=== PATIENT | male | born 1950 | race Caucasian/White ===

== ENCOUNTER 2018-10-09 10:13 | Emergency (ER) | payer MEDICARE, OTHER ==
[~2018-10-09] VITALS: Ht 175.3 cm; Wt 89.8 kg
--- NOTE | 2018-10-09 11:11 | PHYS DOC ---
Past History Past Medical History: Arthritis, Diabetes, Hypertension Past Surgical History: Knee Replacement Alcohol Use: Occasionally Additional Alcohol Information: STATES HE DRINKS A GLASS OF WINE EVERY EVENING Drug Use: None Adult General Chief Complaint Chief Complaint: FINGER INJURY HPI HPI 68-year-old male presents with finger pain. The patient was cutting [place] bread last night when he sliced off a piece of skin of his left index finger. The skin was completely removed. It was bleeding but patient thought he could get it stopped. He wrapped it up at home and was able to go to bed last night. He presents today because it still seems to be bleeding on occasion. Denies any other injuries or complaints. Review of Systems Review of Systems Constitutional: Denies fever or chills [] Eyes: Denies change in visual acuity, redness, or eye pain [] HENT: Denies nasal congestion or sore throat [] Respiratory: Denies cough or shortness of breath [] Cardiovascular: No additional information not addressed in HPI [] GI: Denies abdominal pain, nausea, vomiting, bloody stools or diarrhea [] : Denies dysuria or hematuria [] Musculoskeletal: Denies back pain or joint pain [] Integument: Left index finger avulsion[] Neurologic: Denies headache, focal weakness or sensory changes [] Endocrine: Denies polyuria or polydipsia [] All other systems were reviewed and found to be within normal limits, except as documented in this note. Current Medications Current Medications Current Medications Medications (Trade) Dose Ordered Sig/Yovani Start Time Stop Time Status Last Admin Dose Admin Silver Nitrate/ Potassium Nitrate 1 each 1X ONCE 10/09/18 11:15 10/09/18 11:16 UNV Physical Exam Physical Exam Constitutional: Well developed, well nourished, no acute distress, non-toxic appearance. [] HENT: Normocephalic, atraumatic, bilateral external ears normal, oropharynx moist, no oral exudates, nose normal. [] Eyes: PERRLA, EOMI, conjunctiva normal, no discharge. [] Neck: Normal range of motion, no tenderness, supple, no stridor. [] Cardiovascular:Heart rate regular rhythm, no murmur [] Lungs & Thorax: Bilateral breath sounds clear to auscultation [] Abdomen: Bowel sounds normal, soft, no tenderness, no masses, no pulsatile masses. [] Skin: One centimeter oval skin avulsion of the left index finger, mild bleeding. [] Back: No tenderness, no CVA tenderness. [] Extremities: No tenderness, no cyanosis, no clubbing, ROM intact, no edema. [] Neurologic: Alert and oriented X 3, normal motor function, normal sensory function, no focal deficits noted. [] Psychologic: Affect normal, judgement normal, mood normal. [] Current Patient Data Vital Signs Vital Signs Date Time Temp Pulse Resp B/P (MAP) Pulse Ox O2 Delivery O2 Flow Rate FiO2 10/09/18 10:25 97.6 60 18 99 Room Air EKG EKG [] Radiology/Procedures Radiology/Procedures [] Course & Med Decision Making Course & Med Decision Making Pertinent Labs and Imaging studies reviewed. (See chart for details) Patient's finger was still having some blood seepage. I cauterized with silver nitrate. The patient tolerated the procedure well. A clean dressing was then applied. The patient was given a tDap in the ED. He is stable for discharge at this time. [] Dragon Disclaimer Dragon Disclaimer This electronic medical record was generated, in whole or in part, using a voice recognition dictation system. Departure Departure: Impression: Primary Impression: Laceration of left index finger without damage to nail Disposition: HOME, SELF-CARE Condition: STABLE Referrals: VICKY LAMB MD (PCP) Patient Instructions: Laceration Care, Adult, [id number] Problem Qualifiers Primary Impression: Laceration of left index finger without damage to nail Encounter type: initial encounter Foreign body presence: without foreign body Qualified Codes: S61.211A - Laceration without foreign body of left index finger without damage to nail, initial encounter SANDRA CHU DO Oct 09, 2018 11:11
[2018-10-09 11:45] VITALS: BP 140/83
[2018-10-09] MEDS ORDERED: SILVER NITRATE STICK TP ONE (12:10)
[2018-10-09] MEDS ORDERED: DIPHTH,PERTUSS(ACELL),TET TOX 0.5 ML DISP.SYRIN. VAX IM ONE (12:15)
== END 2018-10-09 11:59 | disposition home or self-care (01) ==
LOC: ER 10:13
DX: S61.211A Laceration without foreign body of left index finger without damage to nail, initial encounter (principal); M19.90 Unspecified osteoarthritis, unspecified site; E11.9 Type 2 diabetes mellitus without complications; I10 Essential (primary) hypertension; W26.0XXA Contact with knife, initial encounter; Y93.89 Activity, other specified; Y92.89 Other specified places as the place of occurrence of the external cause; Y99.8 Other external cause status
CPT/HCPCS: 90471; 90715; 99283-25

== ENCOUNTER 2021-02-26 05:36 | Observation (INO) | payer MEDICARE, OTHER ==
[~2021-02-26] VITALS: Ht 175.3 cm; Wt 93.6 kg
[2021-02-26] VITALS (16 sets, daily range): BP systolic 110–143; BP diastolic 66–92
--- NOTE | 2021-02-26 05:47 | PHYS DOC ---
Past History Past Medical History: Arthritis, Diabetes, Hypertension (TWILA SHEFFIELD MD) Past Surgical History: Knee Replacement (TWILA SHEFFIELD MD) Alcohol Use: Occasionally Drug Use: None (TWILA SHEFFIELD MD) General Adult EDM: Chief Complaint: CHEST PAIN HPI: HPI: ".. I woke up with what I though was reflux or gastric symptoms.. but then had this irregular fast heart rate.. " Patient is a 70 year old male who presents with epigastric/chest pain that awakened him from sleep. Paramedics responded to his home and gave him 2 doses of adenosine 6 and 12 with no change in his tachycardia rhythm. On arrival patient having episodes of normal sinus and runs of A. fib. Patient has past medical history of hypertension which he has been compliant with his medications. Patient denies any recent travel. No severe ill contacts. No history immunosuppression. Normally follows at [place]. Patient has completed Covid - Moderna vaccinations x 2. (TWILA SHEFFIELD MD) Review of Systems: Review of Systems: Constitutional: Denies fever or chills Eyes: Denies change in visual acuity HENT: Denies nasal congestion or sore throat Respiratory: Denies cough or shortness of breath Cardiovascular: Complains of chest pain GI: Complains of epigastric abdominal pain, nausea,. Denies vomiting, bloody stools or diarrhea : Denies dysuria Musculoskeletal: Denies back pain or joint pain Integument: Denies rash Neurologic: Denies headache, focal weakness or sensory changes Endocrine: Denies polyuria or polydipsia Lymphatic: Denies swollen glands Psychiatric: Denies depression or anxiety (TWILA SHEFFIELD MD) Family History: Family History: Noncontributory to presentation. (TWILA SHEFFIELD MD) Current Medications: Current Meds: See nursing for home meds (TWILA SHEFFIELD MD) Allergies: Allergies: Allergies Coded Allergies Type Severity Reaction Last Updated Verified codeine Allergy Unknown 02/26/21 Yes (TWILA SHEFFIELD MD) Physical Exam: PE: Constitutional: moderate acute distress, non-toxic appearance. [] HENT: Normocephalic, atraumatic, bilateral external ears normal, oropharynx moist, no oral exudates, nose normal. [] Eyes: PERRLA, EOMI, conjunctiva normal, no discharge. Glasses Neck: Normal range of motion, no tenderness, supple, no stridor. [] Cardiovascular: Irregular heart rate irregular rhythm, no murmur []. The monitor shows A. fib Lungs & Thorax: Bilateral breath sounds equal apex on auscultation [] Abdomen: Bowel sounds normal, soft, no tenderness, no masses, no pulsatile masses. [] Skin: Warm, dry, no erythema, no rash. [] Back: No tenderness, no CVA tenderness. [] Extremities: No tenderness, no cyanosis, no clubbing, ROM intact, no edema. Left knee scar. No cording Neurologic: Alert and oriented X 3, normal motor function, normal sensory function, no focal deficits noted. [] Psychologic: Affect anxious, judgement normal, mood normal. [] (TWILA SHEFFIELD MD) Current Patient Data: Labs: Laboratory Tests Test 02/26/21 05:41 Glucose (Fingerstick) 159 mg/dL (70-99) H (TWILA SHEFFIELD MD) EKG: EKG: My interpretation EKG shows a ventricular rate of 159. Irregular rhythm and irregular rate. Overall morphology consistent with A. fib. Does have septal s train pattern changes. Abnormal EKG. Time of this EKG was 538 hours [] (TWILA SHEFFIELD MD) EKG: A. fib and RVR 159 bpm, no axis deviation, QTC 442, no obvious ST elevations 0720 sinus rhythm 83 bpm, no axis deviation, normal intervals, no T wave inversions, no ST elevations or ST depressions, no active chest pain ([facility]) Radiology/Procedures: Radiology/Procedures: [] (TWILA SHEFFIELD MD) Radiology/Procedures: IMAGING REPORT Signed PATIENT: YESIKA HASKINS ACCOUNT: [id number] : 1950 LOCATION: ER AGE: 70 SEX: M EXAM STATUS: PRE ER ORD. PHYSICIAN: TWILA SHEFFIELD MD REASON: cp PROCEDURE: PORTABLE CHEST 1V XR CHEST 1V INDICATION: cp COMPARISON STUDY: None. FINDINGS: Lungs: Normal lung volume. No focal airspace disease. Normal pulmonary vasculature. Pleura: No pleural effusion or pneumothorax. Heart and Mediastinum: Normal cardiac mediastinal silhouette. Tortuosity of the thoracic aorta. IMPRESSION: No focal airspace disease. Electronically signed by: Chad Duron MD (02/26/2021 6:17 AM) [facility] DICTATED AND SIGNED BY: CHAD DURON MD DATE: 02/26/21 0615 CC: TWILA SHEFFIELD MD; VICKY LAMB MD ~MTH0 0 ([facility]) Heart Score: C/O Chest Pain: Yes HEART Score for Chest Pain: HEART Score for Chest Pain Response (Comments) Value History Moderately Suspicious 1 ECG Nonspecific Repolarizatio 1 Age > 65 2 Risk Factors 1 or 2 Risk Factors 1 Troponin < Normal Limit 0 Total 5 Risk Factors: Risk Factors: DM, Current or recent (<one month) smoker, HTN, HLP, family history of CAD, obesity. Risk Scores: Score 0 - 3: 2.5% MACE over next 6 weeks - Discharge Home Score 4 - 6: 20.3% MACE over next 6 weeks - Admit for Clinical Observation Score 7 - 10: 72.7% MACE over next 6 weeks - Early Invasive Strategies (TWILA SHEFFIELD MD) C/O Chest Pain: Yes HEART Score for Chest Pain: HEART Score for Chest Pain Response (Comments) Value History Moderately Suspicious 1 ECG Nonspecific Repolarizatio 1 Age > 65 2 Risk Factors >3 Risk Factors or Hx CAD 2 Troponin < Normal Limit 0 Total 6 (SHANNON WOLF DO) Course & Med Decision Making: Course & Med Decision Making Pertinent Labs and Imaging studies reviewed. (See chart for details) Pt. endorsed to Dr. Garcia at shift change. She will make disposition. Impression: 1. Chest Pain 2. Afib. 3. Accelerated HTN 4. DM =159 [] (TWILA SHEFFIELD MD) Course & Med Decision Making Concern for chest pain in a moderate risk patient in the setting of new onset atrial fibrillation. Chest pain resolved with nitro. Will admit to the ICU on Cardizem drip. Patient stable time of admission and agrees to this plan -this conversation was witnessed via on facetime, (patient consents to his/her/their knowledge and involvement in pts' medical care),. I have spoken with the patient and/or caregivers. I have explained the patient's condition, diagnosis and treatment plan based on the information available to me at this time. I have answered the patient's and/or caregivers questions and answered any concerns. The patient and/or caregivers have as good an understanding of the patient's diagnosis, condition and treatment plan as can be expected at this point. The patient has been stabilized within the capability of the emergency department. The patient will be transported for further care and management or will be moved to an observation or inpatient service. I have communicated with the staff or medical practitioner taking over this patient's care. Critical Care: Authorized and Performed by: Shannon Wolf DO Total critical care time: approximately 35 minutes Due to a high probability of clinically significant, life threatening deterioration, the patient required my highest level of preparedness to intervene emergently and I personally spent this critical care time directly and personally managing the patient. This critical care time included obtaining a history; examining the patient; pulse oximetry; ventilator management if necessary; ordering and review of studies; arranging urgent treatment with development of a management plan; evaluation of patient's response to treatment; frequent reassessment; discussion with patient/family; and, discussions with ot her providers. This critical care time was performed to assess and manage the high probability of imminent, life-threatening deterioration that could result in multi-organ failure. It was exclusive of separately billable procedures and treating other patients and teaching time. Please see MDM section and the rest of the note for further information on patient assessment and treatment. (SHANNON WOLF DO) Dragon Disclaimer: Dragon Disclaimer: This electronic medical record was generated, in whole or in part, using a voice recognition dictation system. (TWILA SHEFFIELD MD) Departure Departure: Impression: Primary Impression: Chest pain Additional Impression: New onset atrial fibrillation Disposition: ADMITTED INPATIENT Admitting Physician: William Walker (SHANNON WOLF DO) Condition: CRITICAL Referrals: VICKY LAMB MD (PCP) TWILA SHEFFIELD MD Feb 26, 2021 05:47 SHANNON WOLF DO Feb 26, 2021 06:28
[2021-02-26] MEDS ORDERED: IV NORMAL SALINE 100ML 100 ML ONE (05:59)
[2021-02-26] MEDS ORDERED: IV RINGERS SOLUTION,LACTATED 1,000 ML IV SCH (06:00)
[2021-02-26] MEDS ORDERED: ASPIRIN 325 MG TABLET PO ONE (06:00)
[2021-02-26] MEDS ORDERED: dilTIAZem 25 MG/5 ML VIAL IVP ONE (06:00)
[2021-02-26] MEDS ORDERED: ASPIRIN CHEWABLE 81 MG TABLET. PO ONE (06:00)
[2021-02-26] MEDS ORDERED: dilTIAZem VIAL 125 MG in IV NORMAL SALINE 100ML 100 ML IV PRN (06:00)
[2021-02-26] MEDS ORDERED: NITROGLYCERIN OINT 1 GM PACKET. TP ONE (06:00)
[2021-02-26] MEDS ORDERED: dilTIAZem VIAL 125 MG in IV NORMAL SALINE 100ML 100 ML IV ONE (06:00)
[2021-02-26] MEDS ORDERED: ENOXAPARIN ** NOTE DOSE ** SYRINGE SQ ONE (06:00)
[2021-02-26 06:01] LABS: BASO # 0.1 x10^3/uL (0.0-0.2); BASO % 1 % (0-3); EOS # 0.2 x10^3/uL (0.0-0.7); EOS % 2 % (0-3); HEMATOCRIT 41.3 % (39.0-53.0); HEMOGLOBIN 13.8 g/dL (13.0-17.5); LYMPH # 1.5 x10^3/uL (1.0-4.8); LYMPH % 14 % (24-48); MEAN CORPUSCULAR HEMOGLOBIN 29 pg (25-35); MEAN CORPUSCULAR HGB CONC 33 g/dL (31-37); MEAN CORPUSCULAR VOLUME 87 fL (79-100); MONO # 0.8 x10^3/uL (0.0-1.1); MONO % 8 % (0-9); NEUT # 7.8 x10^3uL (1.8-7.7); NEUT % 75 % (31-73); PLATELET COUNT 248 x10^3/uL (140-400); RED BLOOD COUNT 4.75 x10^6/uL (4.30-5.70); RED CELL DISTRIBUTION WIDTH 13.5 % (11.5-14.5); WHITE BLOOD COUNT 10.4 x10^3/uL (4.0-11.0)
[2021-02-26 06:07] LABS: CREATININE 1.4 mg/dL (0.7-1.3); GFR 50.1
[2021-02-26 06:20] LABS: ALBUMIN 3.6 g/dL (3.4-5.0); DIRECT BILIRUBIN 0.2 mg/dL (0.0-0.2); MAGNESIUM 1.9 mg/dL (1.8-2.4); TOTAL BILIRUBIN 0.7 mg/dL (0.2-1.0); TOTAL PROTEIN 6.5 g/dL (6.4-8.2)
--- NOTE | 2021-02-26 06:20 | RAD ---
XR CHEST 1V INDICATION: cp COMPARISON STUDY: None. FINDINGS: Lungs: Normal lung volume. No focal airspace disease. Normal pulmonary vasculature. Pleura: No pleural effusion or pneumothorax. Heart and Mediastinum: Normal cardiac mediastinal silhouette. Tortuosity of the thoracic aorta. IMPRESSION: No focal airspace disease. Electronically signed by: Walter Duron MD (02/26/2021 6:17 AM) [facility]ITAL[facility]
--- NOTE | 2021-02-26 07:12 | EKG ---
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
--- NOTE | 2021-02-26 07:27 | EKG ---
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
--- NOTE | 2021-02-26 08:40 | PDOC2 ---
CARDIAC CONSULT DATE OF CONSULT DOS: DATE: 02/26/21 TIME: 08:38 REASON FOR CONSULT Reason for Consult Chest pain REFERRING PHYSICIAN Referring Physician Dr. Perry SOURCE Source: Chart review, Patient HPI History of Present Illness This is a 70 yo male who presented secondary to chest pain, palpitations that wok him up from sleep. Patient reports indigestion feeling initially. Took tums and laid back down. Initially felt better. Woke up again and had more pressure in his central chest. Radiated down his left arm. Was not short of breath or diaphoretic. Got up to walk and felt a little dizzy. Began feeling heart beat irregularly. EMS was called. Patient was significantly tachycardiac with HR in the 170's upon their arrival. Initially thought to be in SVT. Adenosine 6mg followed by 12mg administered without improvement. Upon arrival to ED, was noted with AFIB and was given Cardizem bolus and initiated on Cardizem gtt. Converted back to SR. Patient feeling much better following rhythm conversion. Has had no further pain/pressure. No recent GALICIA or chest pain with exertion. No recent fevers or illness. No previous cardiac workup. PAST MEDICAL HISTORY Cardiovascular: HTN Musculoskeletal: Osteoarthritis PAST SURGICAL HISTORY Past Surgical History: Total hip replacement (left knee ), Other (lumbar fusion ) FAMILY HISTORY Family History: Heart Disease, Stroke SOCIAL HISTORY Smoke: No ALCOHOL: other (nightly wine ) Drugs: None Lives: with Family CURRENT MEDICATIONS Current Medications Current Medications Aspirin (Aspirin Chewable) 324 mg 1X ONCE PO Last administered on 02/26/21at 06:17; Start 02/26/21 at 06:00; Stop 02/26/21 at 06:01; Status DC Lactated Ringer's 1,000 ml @ 100 mls/hr Q10H IV Last administered on 02/26/21at 06:25; Start 02/26/21 at 06:00; Stop 02/26/21 at 15:59 Enoxaparin Sodium (Lovenox 100mg Syringe) 100 mg 1X ONCE SQ Last administered on 02/26/21at 06:18; Start 02/26/21 at 06:00; Stop 02/26/21 at 06:01; Status DC Aspirin (Vikki Aspirin) 325 mg 1X ONCE PO ; Start 02/26/21 at 06:00; Stop 02/26/21 at 06:01; Status UNV Diltiazem HCl 125 mg/Sodium Chloride 125 ml @ 5 mls/hr 1X ONCE IV Last administered on 02/26/21at 06:06; Start 02/26/21 at 06:00; Stop 02/27/21 at 06:59 Diltiazem HCl 125 mg/Sodium Chloride 125 ml @ 5 mls/hr CONT PRN IV SEE I/O RECORD; Start 02/26/21 at 06:00 Diltiazem HCl (Cardizem Iv Push) 5 mg 1X ONCE IVP Last administered on 02/26/21at 06:11; Start 02/26/21 at 06:00; Stop 02/26/21 at 06:01; Status DC Nitroglycerin (Nitro-Bid Oint) 1 inch 1X ONCE TP Last administered on 02/26/21at 06:20; Start 02/26/21 at 06:00; Stop 02/26/21 at 06:02; Status DC Sodium Chloride 100 ml @ As Directed STK-MED ONCE .ROUTE ; Start 02/26/21 at 05:59; Stop 02/26/21 at 05:59; Status DC Diltiazem HCl (Cardizem) 125 mg STK-MED ONCE IV ; Start 02/26/21 at 05:59; Stop 02/26/21 at 05:59; Status DC ALLERGIES Allergies: Coded Allergies: codeine (Verified Allergy, Unknown, 02/26/21) ROS Review of Systems 14 point ROS conducted with pertinent positives noted above in HPI PHYSICAL EXAM General: Alert, Oriented X3, Cooperative, No acute distress HEENT: Atraumatic Lungs: Clear to auscultation Heart: Regular rate Abdomen: Soft, No tenderness Extremities: No edema, Normal pulses Skin: No breakdown Neuro: Normal speech, Sensation intact Psych/Mental Status: Mental status NL, Mood NL MUSCULOSKELETAL: Osteoarthritic changes both hands VITALS Vital Signs Vital Signs Date Time Temp Pulse Resp B/P (MAP) Pulse Ox O2 Delivery O2 Flow Rate FiO2 02/26/21 07:53 82 17 144/82 (102) 96 Room Air 02/26/21 05:40 98.9 LABS LABS Laboratory Tests Test 02/26/21 05:41 02/26/21 05:43 Glucose (Fingerstick) 159 mg/dL (70-99) White Blood Count 10.4 x10^3/uL (4.0-11.0) Red Blood Count 4.75 x10^6/uL (4.30-5.70) Hemoglobin 13.8 g/dL (13.0-17.5) Hematocrit 41.3 % (39.0-53.0) Mean Corpuscular Volume 87 fL (79-100) Mean Corpuscular Hemoglobin 29 pg (25-35) Mean Corpuscular Hemoglobin Concent 33 g/dL (31-37) Red Cell Distribution Width 13.5 % (11.5-14.5) Platelet Count 248 x10^3/uL (140-400) Neutrophils (%) (Auto) 75 % (31-73) Lymphocytes (%) (Auto) 14 % (24-48) Monocytes (%) (Auto) 8 % (0-9) Eosinophils (%) (Auto) 2 % (0-3) Basophils (%) (Auto) 1 % (0-3) Neutrophils # (Auto) 7.8 x10^3uL (1.8-7.7) Lymphocytes # (Auto) 1.5 x10^3/uL (1.0-4.8) Monocytes # (Auto) 0.8 x10^3/uL (0.0-1.1) Eosinophils # (Auto) 0.2 x10^3/uL (0.0-0.7) Basophils # (Auto) 0.1 x10^3/uL (0.0-0.2) Prothrombin Time < 9.3 SEC (9.4-11.4) Prothromb Time International Ratio < 0.9 (0.9-1.1) Activated Partial Thromboplast Time 27 SEC (23-33) D-Dimer (Diamond) 0.44 mg/L (0.00-0.50) Sodium Level 142 mmol/L (136-145) Potassium Level 4.0 mmol/L (3.5-5.1) Chloride Level 106 mmol/L (98-107) Carbon Dioxide Level 25 mmol/L (21-32) Anion Gap 11 (6-14) Blood Urea Nitrogen 19 mg/dL (8-26) Creatinine 1.4 mg/dL (0.7-1.3) Estimated GFR (Cockcroft-Gault) 50.1 Glucose Level 162 mg/dL (70-99) Calcium Level 9.0 mg/dL (8.5-10.1) Magnesium Level 1.9 mg/dL (1.8-2.4) Total Bilirubin 0.7 mg/dL (0.2-1.0) Direct Bilirubin 0.2 mg/dL (0.0-0.2) Aspartate Amino Transf (AST/SGOT) 22 U/L (15-37) Alanine Aminotransferase (ALT/SGPT) 40 U/L (16-63) Alkaline Phosphatase 105 U/L (46-116) Creatine Kinase 94 U/L (39-308) Troponin I Quantitative < 0.017 ng/mL (0-0.055) RW-Kic-P-Type Natriuretic Peptide 70 pg/mL (0-124) Total Protein 6.5 g/dL (6.4-8.2) Albumin 3.6 g/dL (3.4-5.0) Lipase 64 U/L (73-393) ASSESSMENT/PLAN Assessment/Plan 1. Chest pain, palpitations; initial trop negative ruled out. Most probably secondary to #2 2. New onset AFIB with RVR; Converted back to SR and is maintaining 3. Accelerated hypertension; now controlled 4. RACHEL vs CKD Recommendations Start oral Cardizem for rate control Titrate off Cardizem gtt Echo to assess LV systolic function Trend troponin TSH, lipids Will add ASA for now for stroke prophylaxis Event monitor arranged to note AFIB burden, guide therapy Outpatient ischemic evaluation Follow up arranged with Dr. Blas Outpatient sleep study CHELA JOHNSON APRN Feb 26, 2021 08:39
[2021-02-26] MEDS ORDERED: GABA-585 PO (11:30)
[2021-02-26] MEDS ORDERED: ATOR40TA59 PO (11:30)
[2021-02-26] MEDS ORDERED: CELE100C PO (11:30)
[2021-02-26] MEDS ORDERED: TELM80TA PO (11:30)
[2021-02-26] MEDS ORDERED: METF500T16 PO (11:52)
--- NOTE | 2021-02-26 12:22 | HP ---
ADMIT DATE: 02/26/2021 ATTENDING PHYSICIAN: Dr. Walker. CHIEF COMPLAINT: Irregular heartbeat and chest pressure. HISTORY OF PRESENT ILLNESS: The patient is a pleasant 70-year-old gentleman, retired . He had epigastric pain, woke him from sleep. He also noticed palpitations and irregular heartbeat. In the ED, he had tachycardia, irregular heartbeat, atrial fibrillation. He was given Cardizem and by the time I saw him, heart rate has slowed down to 78 and sinus. Cardiology consultation obtained. Initial cardiac enzymes were negative. He does have underlying hypertension and diabetes. The etiology of his atrial fibrillation is most likely due to his alcohol use. He says he drinks a couple of glasses of wine. I suspect that he drinks more than that. In any event, he is scheduled to have an outpatient echocardiogram. He has not had any cardiac history in the past. Please note, the first 2 sets of cardiac enzymes are negative for coronary ischemia. PAST MEDICAL HISTORY: Significant for degenerative arthritis. He has had a total knee arthroplasty; type 2 diabetes, non-insulin dependent; essential hypertension. SOCIAL HISTORY: Nonsmoker, drinking history as noted. FAMILY HISTORY: Mom of complications of heart disease at age 68. Father of COPD and lung cancer at age 62. He was also diabetic. CURRENT MEDICATIONS: Reviewed. He was scheduled to take Micardis 80 mg daily along with metformin 500 mg b.i.d., occasional Celebrex and Lipitor. ALLERGIES: HE HAS ALLERGIES TO CODEINE. REVIEW OF SYSTEMS: Unremarkable for any fevers, chills, COVID exposure, palpitations, nausea. All other systems reviewed and turned to be negative. PHYSICAL EXAMINATION: GENERAL: When I saw him, this is a pleasant middle-aged gentleman. INITIAL VITAL SIGNS: Showed blood pressure 134/80 mmHg, oxygen saturations were 97% on room air, pulse is 80 and regular. HEENT: Head is without trauma. Pupils are reactive. Sclerae nonicteric. Oropharynx is clear. NECK: Supple, no bruits identified. LUNGS: Otherwise clear. CARDIOVASCULAR: Showed regular heart tones now. No gallops. ABDOMEN: Soft. No guarding or rebound tenderness. Normoactive bowel sounds. EXTREMITIES: Showed previous surgical scar over the left knee. No edema. NEUROLOGIC: Focally intact. Speech is fluent. SKIN: Warm and dry. PERTINENT LABORATORY STUDIES: His hemoglobin was 13.8 g/dL with a white count of 10,400. Electrolytes all within normal range. Creatinine is 1.4 mg/dL. Nonfasting blood sugar 159 mg/dL. The first 2 sets of cardiac enzymes were negative for coronary ischemia. Liver panel, transaminases are all within normal range. Chest x-ray initial report showed no acute pathologic process. ASSESSMENT: 1. A 70-year-old gentleman with atrial fibrillation with rapid ventricular rate, now controlled with a Cardizem drip. 2. Gastroesophageal reflux disease as a source of his chest pain. 3. Significant alcohol use despite his downplaying the amount. 4. Essential hypertension. 5. Type 2 diabetes, non-insulin dependent. PLAN: 1. Admit to the inpatient unit. 2. Telemetry monitoring. 3. Serial cardiac enzymes. 4. Formal Cardiology consultation with plans for echocardiogram as well as event monitor as an outpatient. JESUS/SHANE DR: Jigar TID: [id number] CC: CLAUDIA PHELPS
[2021-02-26] MEDS ORDERED: RIVAROXABAN 10 MG TABLET. PO SCH (17:00)
[2021-02-27] VITALS (9 sets, daily range): BP systolic 122–142; BP diastolic 72–89
[2021-02-27] MEDS ORDERED: ASPIRIN ENTERIC COATED 81 MG TABLET.DR. PO SCH (08:00)
--- NOTE | 2021-02-27 09:54 | DS ---
DATE OF DISCHARGE: 02/27/2021 ATTENDING PHYSICIAN: Dr. Walker. FINAL DISCHARGE DIAGNOSES: 1. Atrial fibrillation with rapid ventricular rate, converted. 2. Labile hypertension. 3. Hypertensive heart disease. 4. 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 5. Borderline type 2 diabetes. HISTORY AND PHYSICAL: The patient is a pleasant, active 70-year-old gentleman, retired . He presented with palpitations, weakness and chest discomfort. He had atrial fibrillation with rapid ventricular rate. The ventricular rate was in the 150s. He was given Cardizem to control his rate, eventually he converted spontaneously. OBJECTIVE FINDINGS, PHYSICAL EXAM: Please see my dictated note. PERTINENT LABORATORY AND X-RAY STUDIES: Three sets of cardiac enzymes were negative for coronary ischemia. His cholesterol level was 156 with a triglyceride of 335. Hemoglobin 13.8 g/dL, white count of 10,000. Admission electrolytes were within normal range. Creatinine is 1.4 mg/dL. Nonfasting blood sugar 159 mg/dL. COURSE IN THE HOSPITAL: The patient was admitted. He had formal Cardiology consultation. Echocardiogram was done on the second hospital day, the results are pending. He had no signs of heart failure at this time. Serial enzymes were run, which showed no evidence of coronary ischemia. Cardiology consultation recommended further evaluation including event monitor as well as stress test as an outpatient. By the second hospital day, he was alert, blood pressure and vital signs were stable, heart rate was sinus in the 70s. At this time, I recommended Cardizem-CD 240 daily and continuation of other meds including his Micardis, metformin, a baby aspirin daily, and his . His blood pressure at time of discharge was 130/90, pulse was 70 and regular, he was afebrile. The patient was then discharged from our hospital in stable condition with explicit drug and followup care. Total discharge time is 39 minutes. NISHANT/OSMIN DR: Jigar TID: [id number] CC: CLAUDIA PHELPS
--- NOTE | 2021-02-27 10:24 | NUR ---
DISCHARGE Pt was discharged today by Dr. Walker. Pt verbalized understanding of discharge paperwork and hard copy prescriptions. All questions addressed. Pt escorted to main entrance and escorted home by family member. Pt ambulatory, GCS 15 and VSS. CC, RN
--- NOTE | 2021-02-27 11:06 | CARD ---
MR#: [id number] Date of Study: 02/27/2021 Ordering Physician: CHELA JOHNSON, Referring Physician: CHELA JOHNSON, Tech: Denilson Huber [facility] APPROVED REPORT EXAM: Two-dimensional and M-mode echocardiogram with Doppler and color Doppler. Other Information Quality : AverageHR: 74bpm Rhythm : NSR INDICATION Atrial Fibrillation 2D DIMENSIONS Left Atrium(2D)3.7 (1.6-4.0cm)IVSd1.2 (0.7-1.1cm) Aortic Root(2D)3.5 (2.0-3.7cm)LVDd4.9 (3.9-5.9cm) LVOT Diameter1.9 (1.8-2.4cm)PWd1.3 (0.7-1.1cm) LVDs3.1 (2.5-4.0cm)FS (%) 37.1 % SV76.2 ml Aortic Valve AoV Peak Benny.125.7cm/sAoV VTI26.7cm AO Peak GR.6.3mmHgLVOT Peak Benny.105.2cm/s LVOT VTI 23.72cmAO Mean GR.3mmHg OLINDA (VMAX)2.26lc1MVZ (VTI)2.63cm2 Mitral Valve MV E Krogudvx27.5cm/sMV E Peak Gr.3mmHg MV DECEL [id number] A Jfplcmhq19.6cm/s MV E Mean Gr.1mmHgE/A Ratio0.8 Pulmonary Valve PV Peak Vsoauuso48.6cm/sPV Peak Grad.3mmHg Tricuspid Valve TR P. Kyfqgxul309gf/sTR Peak Gr.19mmHg Pulmonary Vein S1 Ilfzmaej82.4cm/sD2 Cydxsrmu05.4cm/s LEFT VENTRICLE The left ventricle is normal size. There is mild concentric left ventricular hypertrophy. The left ve ntricular systolic function is normal. LV ejection fraction is 55 to 60%. There is normal LV segmenta l wall motion. No left ventricle thrombus noted on this study. There is no ventricular septal defect visualized. There is no left ventricular aneurysm. There is no mass noted in the left ventricle. RIGHT VENTRICLE The right ventricle is normal size. There is normal right ventricular wall thickness. The right ventr icular systolic function is normal. ATRIA The left atrium size is normal. The right atrium size is normal. AORTIC VALVE The aortic valve is normal in structure and function. Doppler and Color Flow revealed no significant aortic regurgitation. There is no significant aortic valvular stenosis. There is no aortic valvular v egetation. MITRAL VALVE The mitral valve is normal in structure and function. There is no evidence of mitral valve prolapse. There is no mitral valve stenosis. Doppler and Color Flow revealed no mitral valve regurgitation note d. TRICUSPID VALVE The tricuspid valve is normal in structure and function. Doppler and Color Flow revealed trace to mil d tricuspid regurgitation. There is no tricuspid valve prolapse or vegetation. There is no tricuspid valve stenosis. PULMONIC VALVE The pulmonary valve is normal in structure and function. Mild pulmonic regurgitation There is no pulm onic valvular stenosis. GREAT VESSELS The aortic root is normal in size. The ascending aorta is normal in size. The pulmonary artery is nor mal. The IVC is normal in size and collapses >50% with inspiration. PERICARDIAL EFFUSION There is no pleural effusion. There is no evidence of significant pericardial effusion. Critical Notification Critical Value: No <Conclusion> The left ventricle is normal size. The left ventricular systolic function is normal. LV ejection fraction is 55 to 60%. There is mild concentric left ventricular hypertrophy. There is no significant aortic valvular stenosis. There is no aortic valvular vegetation. Doppler and Color Flow revealed no mitral valve regurgitation noted. Doppler and Color Flow revealed trace to mild tricuspid regurgitation. Signed by : Brendan Elise MD Electronically Approved : 02/27/2021 11:05:40
== END 2021-02-27 10:15 | disposition still patient (30) ==
LOC: ER 05:36 → ICU 06:52 → INTOOBSV 06:52
PROVIDERS: ADMIT Hospitalist; ATTEND Hospitalist
DX: I48.91 Unspecified atrial fibrillation (principal); R00.0 Tachycardia, unspecified; I11.9 Hypertensive heart disease without heart failure; K21.9 Gastro-esophageal reflux disease without esophagitis; E11.9 Type 2 diabetes mellitus without complications; M19.90 Unspecified osteoarthritis, unspecified site; R07.89 Other chest pain; R00.2 Palpitations; Z83.3 Family history of diabetes mellitus; Z82.5 Family history of asthma and other chronic lower respiratory diseases; Z82.3 Family history of stroke; Z96.659 Presence of unspecified artificial knee joint; Z80.1 Family history of malignant neoplasm of trachea, bronchus and lung; Z79.82 Long term (current) use of aspirin; Z98.890 Other specified postprocedural states; Z96.642 Presence of left artificial hip joint
CPT/HCPCS: 36415; 71045; 80048; 80061; 80076; 82550; 82947; 83690; 83735; 83880; 84443; 84484; 85025; 85379; 85610; 85730; 93005; 93306; 96365; 96366; 96372; 99291; G0378; J1650; J3490; J7120; 96375; G0379; 99285-25

== ENCOUNTER → 2021-05-06 | Outpatient (CLI) | payer MEDICARE, OTHER ==
[2021-02-27 09:04] VITALS: BP 142/83
[~2021-05-06] MED LIST: ATOR40TA59 PO; CELE100C PO; GABA-585 PO; METF500T16 PO; REGADENOSON 0.4 MG/5 ML DISP.SYRIN. IV ONE; TELM80TA PO
--- NOTE | 2021-05-06 12:18 | RAD ---
MR#: [id number] Date of Study: 05/06/2021 Ordering Physician: CHRISTOPHER CALLE, Referring Physician: DAMIAN DUMONT Tech: KAROLINA Song ARRT (R) (N) APPROVED REPORT Test Type: Pharmacological Stress Nurse/Tech: KYA Marsh Test Indications: a-fib Cardiac History: Hypertension, High cholesterol, Diabetes Medications: See Electronic Medical Record Medical History: See Electronic Medical Record Resting ECG: SR Resting Heart Rate: 61 bpm Resting Blood Pressure: 131/78mmHg Pretest Chest Pain: None Nurse/Tech Notes SR NO ACUTE/SIGNIFICANT CAHNGES Consent: The procedure was explained to the patient in lay terms. Informed consent was witnessed. Ramu eout was entered into [employer]. History and Stress Test performed by KAROLINA Song ARRT (R) (N) Pharm. Details Pharmacologic stress testing was performed using 0.4mg per 5ml of regadenoson given intravenously ove r 7-10 seconds. Stress Symptoms Dyspnea POST EXERCISE Reason for Termination: Infusion complete Target HR: No Max HR: 88 bpm 69% of Maximum Predicted HR: 126 bpm Exercise duration: 6 min:sec, Stage Max Blood Pressure: 108/62mmHg Blood Pressure response to exercise: Normal blood pressure response during stress. Chest Pain: No. Arrhythmia: No. ST Change: No. INTERPRETATION Stress EKG Conclusion: The resting EKG shows a sinus rhythm with mild nonspecific ST wave changes. The stress EKG shows no significant changes from baseline. No EKG evidence of stress-induced ischemia. Imaging Protocol IMAGE PROTOCOL: Rest Tc-99m/stress Tc-99m 1 day Rest: Stress: Viability: Radiopharm.Tc99m YzhkqlcjtIg67t Sestamibi Dose10.6mCi 31mCi Img Date 05/06/2021 05/06/2021 Inj-Img [id number]. 60min. Rest Admin Site:IV - Left AntecubitalAdministrator: KAROLINA Song ARRT (R)(N) Stress Admin Site: IV - Left AntecubitalAdministrator: Ximena Ham, NMTCB, ARRT (R)(N) STRESS DATA End Diast. Vol.71.0mlAv. Heart Rate75.0bpm End Syst. Vol.7.0mlCO Index BSA4.8L/min Myocardial Gzqd902.0gEject. Wozuyrug63.0% Stress Rates Pk. Fill Rate4.12EDV/secLVtime Pk. Fill 112.06msec Pk. Empty Rate5.13ESV/secLVtime Pk. Wawit945.80msec 08/10 Pk. Fill2.57EDV/sec Stress Scores Regional WT0.00Summed WT0.00 Regional WM0.00Summed WM1.00 LV Perfusion The stress scans show no significant defects. The rest scans show no significant defects. Nuclear imaging shows no reversible ischemia or infarct. Wall Motion Left ventricular systolic function is normal with an ejection fraction of greater than 70%. LV Perf. Quant 17 Seg. SSS0.00 17 Seg. SRS0.00 17 Seg. SDS0.00 Stress Defect Extent (% LAD)0.00Rest Defect Extent (% LAD)0.00Rev. Defect Extent (% LAD)0.00 Stress Defect Extent (% LCX) 0.00Rest Defect Extent (% LCX)0.00Rev. Defect Extent (% LCX)0.00 Stress Defect Extent (% RCA)0.00Rest Defect Extent (% RCA)0.00Rev. Defect Extent (% RCA)0.00 Stress Defect Extent (% ZEYNEP)0.00Rest Defect Extent (% ZEYNEP)0.00Rev. Defect Extent (% ZEYNEP)0.00 Conclusion 1. No EKG evidence of stress-induced ischemia. 2. Nuclear imaging shows no reversible ischemia or infarct. 3. Normal left ventricular systolic function with an ejection fraction of greater than 70%. 4. Low risk Lexiscan nuclear stress test. Signed by : Brendan Elise MD Electronically Approved : 05/06/2021 12:17:47
== END ==
LOC: NM 08:05
PROVIDERS: ATTEND Internal Medicine Cardiovascular Disease
DX: I48.91 Unspecified atrial fibrillation (principal)
CPT/HCPCS: 78452; 93017; A9500; J2785